=== PATIENT | female | born 2000 | race Caucasian/White ===

== ENCOUNTER 2023-07-06 23:13 | Observation (INO) | payer BC ==
[~2023-07-06] VITALS: Ht 160 cm; Wt 68.3 kg
[2023-07-07] MEDS ORDERED: NORCO, ANEXSIA 5/325MG TABLET (HYDROcodone/ACETAMINOPHEN) PO ONE (06:55)
[2023-07-07] MEDS ORDERED: LAMI1TAB8 (08:21)
[2023-07-07] MEDS ORDERED: MELO15TA28 PO (08:21)
[2023-07-07] MEDS ORDERED: GABA-282 PO (08:21)
[2023-07-07] MEDS ORDERED: MODA200T15 PO (08:21)
[2023-07-07] MEDS ORDERED: L-ME1TAB PO (08:21)
[2023-07-07] MEDS ORDERED: VIEN1TAB PO (08:21)
[2023-07-07] MEDS ORDERED: LAMO150T3 PO (08:21)
[2023-07-07] MEDS ORDERED: MORPHINE 4 MG/ML 1ML VIAL IV ONE (09:10)
[2023-07-07] MEDS ORDERED: MED REC IN PROGRESS XX SCH (09:15)
[2023-07-07] MEDS ORDERED: HOME MED LIST COMPLETE! XX SCH (10:00)
[2023-07-07 11:13] LABS: BLOOD UREA NITROGEN 8 MG/DL (9-23); CALCIUM LEVEL 8.6 MG/DL (8.5-10.1); CARBON DIOXIDE LEVEL 27 MMOL/L (20-31); CHLORIDE LEVEL 104 MMOL/L (98-107); CREATININE FOR GFR 0.63 MG/DL (0.55-1.30); GLOMERULAR FILTRATION RATE > 60.0 (>60); GLUCOSE, FASTING 107 MG/DL (60-100); POTASSIUM SERUM 3.8 MMOL/L (3.5-5.1); SODIUM LEVEL 137 MMOL/L (136-145)
[2023-07-07 11:47] LABS: RSV AMPLIFICATION NEGATIVE (NEGATIVE)
[2023-07-07 12:08] LABS: BASO % 0.3 % (0.0-1.0); EOS # 0.2 10^3/uL (0.0-0.5); EOS % 2.2 % (0.0-3.0); HEMATOCRIT 39.5 % (36.0-47.0); HEMOGLOBIN 12.7 g/dl (12.0-15.5); LYMPH # 1.4 10^3/uL (1.5-5.0); LYMPH % 18.7 % (24.0-44.0); MEAN CORPUSCULAR HEMOGLOBIN 27.7 pg (27.0-33.0); MEAN CORPUSCULAR HGB CONC 32.2 g/dl (32.0-36.5); MEAN CORPUSCULAR VOLUME 86.1 fl (80.0-96.0); MONO # 1.3 10^3/uL (0.0-0.8); NEUTROPHILS # 4.5 10^3/uL (1.5-8.5); NEUTROPHILS % 60.5 % (36.0-66.0); PLATELET COUNT, AUTOMATED 220 10^3/uL (150-450); RED BLOOD COUNT 4.59 10^6/uL (4.00-5.40); WHITE BLOOD COUNT 7.4 10^3/uL (4.0-10.0)
[2023-07-07 13:10] VITALS: BP 110/73; TEMP 97.9; O2SAT 100
[2023-07-07] MEDS: ACETAMINOPHEN 500 MG TAB PO SCH ×2 (13:43→22:00)
[2023-07-07] MEDS: KETOROLAC 30 MG/ML 1ML VIAL IV PRN (16:01)
[2023-07-07] MEDS: lamoTRIgine 25MG TAB PO SCH (20:05)
[2023-07-07] MEDS: lamoTRIgine 100MG TAB PO SCH (20:05)
[2023-07-07 20:15] VITALS: BP 104/61; TEMP 98.4; O2SAT 99
[2023-07-07] MEDS: GABAPENTIN 300 MG CAP PO SCH (21:00)
[2023-07-08] VITALS (7 sets, daily range): BP systolic 96–125; BP diastolic 53–73; TEMP 97.3–98.8; O2SAT 96–100
[2023-07-08] MEDS: ACETAMINOPHEN 500 MG TAB PO SCH ×3 (06:00→20:12)
[2023-07-08] MEDS: KETOROLAC 30 MG/ML 1ML VIAL IV PRN (06:32)
[2023-07-08] MEDS: D5W/0.9% SODIUM CHLORIDE 1,000 ML IV SCH ×2 (08:21→23:23)
[2023-07-08] MEDS ORDERED: MORPHINE 4 MG/ML 1ML VIAL IV ONE (11:30)
[2023-07-08] MEDS: KETOROLAC 30 MG/ML 1ML VIAL IV SCH ×2 (12:14→20:22)
[2023-07-08 15:04] LABS: URINE PREG TEST NEGATIVE (NEGATIVE)
[2023-07-08] MEDS ORDERED: VANCOMYCIN 1000MG/20ML VIAL As Ordered ONE (15:37)
[2023-07-08] MEDS ORDERED: TRANEXAMIC ACID 100 MG/ML 10ML VIAL As Ordered ONE (15:37)
[2023-07-08] MEDS ORDERED: ceFAZolin 2 GM/D5W 50 ML IV BAG As Ordered ONE (16:29)
[2023-07-08] MEDS ORDERED: LIDOCAINE 1% SDV 30ML VIAL As Ordered ONE (16:29)
[2023-07-08] MEDS ORDERED: fentaNYL 100 MCG/2 ML INJECTION As Ordered ONE ×2 (16:56→17:38)
[2023-07-08] MEDS ORDERED: propofoL 200 MG/20 ML VIAL As Ordered ONE (16:56)
[2023-07-08] MEDS ORDERED: LIDOCAINE 2% 100MG/5ML SDV (FOR ANES.) As Ordered ONE (16:56)
[2023-07-08] MEDS ORDERED: MIDAZOLAM INJ 2MG/2ML VIAL As Ordered ONE (16:56)
[2023-07-08] MEDS ORDERED: ONDANSETRON 4MG 2ML VIAL As Ordered ONE (16:57)
[2023-07-08] MEDS ORDERED: ROCURONIUM BROMIDE 50MG/5ML VIAL As Ordered ONE (16:57)
[2023-07-08] MEDS ORDERED: ACETAMINOPHEN 1000MG 100ML IV BAG As Ordered ONE (17:05)
[2023-07-08] MEDS ORDERED: KETOROLAC 60MG 2ML VIAL As Ordered ONE (17:46)
[2023-07-08] MEDS ORDERED: SUGAMMADEX SODIUM 500 MG/5 ML VIAL (BRIDION) As Ordered ONE (17:46)
[2023-07-08] MEDS ORDERED: fentaNYL 100 MCG/2 ML INJECTION IV PRN (19:15)
[2023-07-08] MEDS ORDERED: oxyCODONE 5MG TAB PO PRN (19:15)
[2023-07-08] MEDS ORDERED: LR 1,000 ML IV SCH (19:15)
[2023-07-08] MEDS ORDERED: ONDANSETRON 4MG 2ML VIAL IV PRN (19:15)
[2023-07-08] MEDS: lamoTRIgine 100MG TAB PO SCH (20:12)
[2023-07-08] MEDS: lamoTRIgine 25MG TAB PO SCH (20:12)
[2023-07-08] MEDS: GABAPENTIN 300 MG CAP PO SCH (20:13)
[2023-07-08] MEDS ORDERED: LEVOMEFOLATE 15 MG PO SCH (21:00)
[2023-07-09] VITALS: BP 119/59; TEMP 98.6; O2SAT 97
[2023-07-09] MEDS: KETOROLAC 30 MG/ML 1ML VIAL IV SCH ×3 (00:46→12:01)
[2023-07-09 01:00] VITALS: BP 115/57; TEMP 98.4; O2SAT 97
[2023-07-09 02:00] VITALS: BP 113/54; TEMP 98.1; O2SAT 96
[2023-07-09] MEDS ORDERED: KETOROLAC 30 MG/ML 1ML VIAL IV ONE (02:25)
[2023-07-09] MEDS ORDERED: traMADol 50 MG TAB PO ONE (03:00)
[2023-07-09 06:00] VITALS: BP 99/54; TEMP 97.7; O2SAT 97
[2023-07-09] MEDS: ACETAMINOPHEN 500 MG TAB PO SCH ×2 (06:37→13:29)
[2023-07-09] MEDS ORDERED: IBUP-1022 PO (08:08)
[2023-07-09] MEDS ORDERED: ACET-683 PO (08:08)
[2023-07-09] MEDS ORDERED: ASPIRIN 81MG ENTERIC TABLET PO SCH (09:00)
[2023-07-09] MEDS ORDERED: MODAFINIL 100 MG TABLET PO SCH (09:00)
[2023-07-09 09:15] VITALS: BP 99/54; TEMP 97.7; O2SAT 97
[2023-07-09 10:07] VITALS: BP 103/64; TEMP 98.8; O2SAT 99
[2023-07-09] MEDS ORDERED: TRAM50TA2 PO (12:13)
[2023-07-09] MEDS ORDERED: ASPI81TA26 PO (12:50)
[2023-07-09] MEDS ORDERED: INFLUENZA QUADRIVALENT PF VACCINE 0.5ML SYRINGE IM.IMMUN ONE (13:00)
== END 2023-07-09 14:10 | disposition home or self-care (01) ==
LOC: M ED 23:13 → M ED INP 23:14 → M MS5PR 07-07 13:08
PROVIDERS: ADMIT Internal Medicine Nephrology; ATTEND Internal Medicine Nephrology
DX: S92.112A Displaced fracture of neck of left talus, initial encounter for closed fracture (principal); V86.59XA Driver of other special all-terrain or other off-road motor vehicle injured in nontraffic accident, initial encounter; Y92.838 Other recreation area as the place of occurrence of the external cause; M25.569 Pain in unspecified knee; F31.9 Bipolar disorder, unspecified; F43.10 Post-traumatic stress disorder, unspecified; F42.9 Obsessive-compulsive disorder, unspecified; F90.9 Attention-deficit hyperactivity disorder, unspecified type; Z81.8 Family history of other mental and behavioral disorders; F17.210 Nicotine dependence, cigarettes, uncomplicated; Z79.899 Other long term (current) drug therapy
CPT/HCPCS: 28445; 36415; 73590; 73610; 73630; 73700; 76000; 80048; 84703; 85025; 87631; 90471; 90686; 96374; 96375; 96376; 99284; C1713; C9290; J0131; J0665; J1100; J1885; J2250; J2405; J3010; J3370

== ENCOUNTER → 2023-08-18 | Outpatient (CLI) | payer BC ==
[~2023-08-18] MED LIST: ACET-683 PO; ASPI81TA26 PO; GABA-282 PO; IBUP-1022 PO; L-ME1TAB PO; LAMI1TAB8; LAMO150T3 PO; MELO15TA28 PO; MODA200T15 PO; TRAM50TA2 PO; VIEN1TAB PO
== END ==
LOC: M SOG 07:50
PROVIDERS: ATTEND Physician Assistant
DX: S92.112A Displaced fracture of neck of left talus, initial encounter for closed fracture (principal); W18.30XA Fall on same level, unspecified, initial encounter; Y92.009 Unspecified place in unspecified non-institutional (private) residence as the place of occurrence of the external cause

== ENCOUNTER → 2023-09-22 | Outpatient (CLI) | payer BC | LOC: M SOG 07:55 | PROVIDERS: ATTEND Physician Assistant | DX: S92.112A Displaced fracture of neck of left talus, initial encounter for closed fracture (principal); W18.30XA Fall on same level, unspecified, initial encounter; Y92.009 Unspecified place in unspecified non-institutional (private) residence as the place of occurrence of the external cause ==

== ENCOUNTER → 2023-12-15 | Outpatient (CLI) | LOC: M SOG 07:58 | PROVIDERS: ATTEND Physician Assistant | DX: S92.112A Displaced fracture of neck of left talus, initial encounter for closed fracture (principal); W18.30XA Fall on same level, unspecified, initial encounter; Y92.009 Unspecified place in unspecified non-institutional (private) residence as the place of occurrence of the external cause ==

== ENCOUNTER → 2024-01-16 | Outpatient (REF) | payer BC | LOC: M LAB REF 17:25 | PROVIDERS: ATTEND Physician Assistant Medical | DX: B34.9 Viral infection, unspecified (principal) ==